=== PATIENT | male | born 1950 | race Caucasian/White ===

== ENCOUNTER → 2018-03-19 | Outpatient (CLI) | payer MEDICARE ==
[~2018-03-19] MED LIST: ASPIRIN325 PO; B-COMPLEX PO; BYSTOLIC 5 MG5 M1 PO; CRESTOR5 MG PO; DESYREL100 MG PO; NITROGLYCERIN0.4 MG SL; NORCO 5-325 TA1 EACH PO; PHENERGAN 25 MG25 M1 PO; PLAVIX 75 MG TA75 MG PO
== END ==
LOC: M.ULTRA 10:29
DX: I86.1 Scrotal varices (principal); N43.3 Hydrocele, unspecified; R19.03 Right lower quadrant abdominal swelling, mass and lump

== ENCOUNTER → 2019-03-28 | Outpatient (CLI) | payer MEDICARE ==
--- NOTE | 2019-03-28 18:57 | CARDNUC ---
[place] [address] CARDIAC NUCLEAR IMAGING REPORT Name: YUNIEL JONES [id number] Admission: 03/28/19 Attend Phys: Pat Carrero, Discharge: Date of : 48 Date of Service: 03/28/19 1857 Report #: [id number] THIS REPORT FOR: //name// APPROVED REPORT Study performed: 03/28/2019 10:49:55 Indication: Pre-Operative CV evaluation Patient Location: Out-Patient Stress Tech: Roula Murphy Stress Nurse: Marci Britt RN Ht: 6 ft 0 in Wt: 238 lbs BSA: 2.29 m2 BMI: 32.27 Medical History Medical History: cad, hyperlipidemia, hypertension Medications: atorvastatin, losartan Allergies: amoxil, codeine, ees Cardiac Risk Factors: age.hyperlipidemia, hypertension, former smoker Previous Cardiac Procedures: pci Exercise History: Physically active Resting Data Rest SPECT myocardial perfusion imaging was performed in supine position 30 minutes following the intravenous injection of 11.4 mCi of Tc-99m Sestamibi. Time of rest injection: 09:00 The images were gated to evaluate regional wall motion and calculate left ventricular ejection fraction. Administration Route: IV Administration Site: Right AC Pharmacologic Stress Pharmacologic stress test was performed by injecting Regadenoson 0.4 mg IV push over 10-15 seconds immediately followed by the intravenous injection of 34.3 mCi of Tc-99m Sestamibi. Time of stress injection: 10:45 Administration Route: IV Administration Site: Right AC Heart Rate at time of stress injection: 84 bpm. Gated Stress SPECT was performed 45 minutes after stress injection. The images were gated to evaluate regional [place] [address] CARDIAC NUCLEAR IMAGING REPORT Name: KARENYUNIELJAMIL LANDA Room: [facility]#: [id number] Admission: 03/28/19 Attend Phys: Pat Carrero, Discharge: Date of : 48 Date of Service: 03/28/19 1857 Report #: [id number] left ventricular ejection fraction. Prone imaging was performed. Stress Test Details Stress Test: Pharmacologic stress testing performed using 0.4 mg of regadenoson per 5 mL given IV over 10 seconds. Reason for pharmacologic stress test: physical limitation. HR Max Heart Rate (APMHR): 151 bpm Resting HR: 67 bpm Target HR (85% APMHR): 128 bpm Max HR Achieved: 85 bpm % of APMHR: 56 Recovery HR: 82 bpm BP Resting BP: 145/80 mmHg Max BP: 127/78 mmHg Recovery BP: 135/81 mmHg ECG Resting ECG: Sinus Rhythm Stress ECG: Sinus Rhythm ST Change: None Arrhythmia: None Recovery ECG: Sinus Rhythm Recovery ST Change: None Recovery Arrhythmia: None Clinical Reason for Termination: Completed protocol Exercise duration: 0 min sec Exercise capacity: 1 METs Patient tolerated Lexiscan infusion without significant cardiac symptoms. Nurse Comments pt has bad knee which he is getting surgery for and is unable to walk on treadmill Stress ECG Conclusion The baseline 12-lead EKG showed no significant ST segment abnormality. EKGs obtained during and post Leatha scan infusion show sinus rhythm with no significant ST segment changes when compared baseline. There were no stress-induced arrhythmias. Study Quality Study: [place] [address] CARDIAC NUCLEAR IMAGING REPORT Name: YUNIEL JONES Room: [facility]#: [id number] Admission: 03/28/19 Attend Phys: RuddyLatrell Cartwright Magan, Discharge: Date of : 48 Date of Service: 03/28/19 1857 Report #: [id number] Artifact: Mild Diaphragmatic artifact Study Data At rest, the left ventricular ejection fraction was 52%.. Post stress, the left ventricular ejection was 59%.. TID = 1.03. Perfusion Perfusion images obtained in the supine position at rest and post Lexiscan stress show photopenia in the inferior wall that resolves with post stress prone imaging suggesting diaphragmatic attenuation artifact. No other significant fixed or reversible defects are identified. Wall Motion Normal left ventricular wall motion. Nuclear Conclusion ECG Findings: negative for ischemia Clinical Findings: negative for ischemia Nuclear Findings: negative for ischemia Exercise Capacity: not assessed Left Ventricular Function: normal Risk Study: low Perfusion images show no defect to suggest infarct or ischemia. Left ventricular systolic function appears normal on gated studies. This is a low risk study. <Conclusion> The baseline 12-lead EKG showed no significant ST segment abnormality. EKGs obtained during and post Leatha scan infusion show sinus rhythm with no significant ST segment changes when compared baseline. There were no stress-induced arrhythmias. <ELECTRONICALLY SIGNED> By: Joshua Monahan MD, FACC 03/28/191856 56 56 Joshua Monahan MD, FACC /INF
== END ==
LOC: M.CT 03-20 10:52 → M.NUC 03-25 14:00 → M.CRD 03-25 15:00 → M.NUC 03-25 16:00 → M.LAB 07:30 → M.CT 08:30 → M.NUC 04-05 08:00
PROVIDERS: Internal Medicine
DX: Z01.818 Encounter for other preprocedural examination (principal); I25.119 Atherosclerotic heart disease of native coronary artery with unspecified angina pectoris; I71.2 Thoracic aortic aneurysm, without rupture; I10 Essential (primary) hypertension; E78.5 Hyperlipidemia, unspecified; Z79.899 Other long term (current) drug therapy; Z87.891 Personal history of nicotine dependence; Z95.5 Presence of coronary angioplasty implant and graft; Z88.1 Allergy status to other antibiotic agents; Z88.5 Allergy status to narcotic agent

== ENCOUNTER → 2019-09-03 | Outpatient (CLI) | payer OTHER ==
--- NOTE | 2019-09-03 17:10 | 2DMMODE ---
[place] [address] 2 D/M-MODE ECHOCARDIOGRAM Name: YUNIEL JONES Room: [facility]#: [id number] Admission: 09/03/19 Attend Phys: Wang Giraldo MD Discharge: Date of : 48 Date of Service: 09/03/19 1709 Report #: [id number] THIS REPORT FOR: cc: Esperanza Levi MD, Katrina MD Liston, Michael J. MD [facility] ~ APPROVED REPORT Study performed: 09/03/2019 14:33:14 EXAM: Comprehensive 2D, Doppler, and color-flow Echocardiogram Patient Location: Out-Patient BSA: 2.31 HR: 78 bpm BP: 130/80 mmHg Other Information Study Quality: Fair Indications CAD 2D Dimensions IVSd: 12.73 (7-11mm) LVOT Diam: 21.05 (18-24mm) LVDd: 34.29 mm PWd: 10.65 (7-11mm) Ascending Ao: 40.69 (22-36mm) LVDs: 23.76 (25-40mm) Aortic Root: 22.68 mm Volumes Left Atrial Volume (Systole) LA ESV Index: 16.70 mL/m2 Aortic Valve AoV Peak Lui.: 1.16 m/s AO Peak Gr.: 5.39 mmHg LVOT Max P.83 mmHg AO Mean Gr.: 2.88 mmHg LVOT Mean P.39 mmHg LVOT Max V: 1.10 m/s AO V2 VTI: 25.94 cm LVOT Mean V: 0.72 m/s DEVENDRA (VTI): 3.19 cm2 LVOT V1 VTI: 23.75 cm Mitral Valve E/A Ratio: 1.04 [place] [address] 2 D/M-MODE ECHOCARDIOGRAM Name: YUNIEL JONES Room: [facility]#: [id number] Admission: 09/03/19 Attend Phys: Wang Giraldo MD Discharge: Date of : 48 Date of Service: 09/03/19 1709 Report #: [id number] MV Decel. Time: 225.84 ms MV E Max Lui.: 0.72 m/s MV PHT: 65.49 ms MVA (PHT): 3.36 cm2 TDI E/Lateral E': 7.20 E/Medial E': 8.00 Medial E' Lui.: 0.09 m/s Lateral E' Lui.: 0.10 m/s Pulmonary Valve PV Peak Lui.: 0.71 m/s PV Peak Gr.: 2.03 mmHg Left Ventricle The left ventricle is normal size. There is normal LV segmental wall motion. There is normal left ventricular wall thickness. Left ventricular systolic function is normal. LVEF is 55-60%. Left ventricular filling pattern is normal for age. Right Ventricle The right ventricle is normal size. The right ventricular systolic function is normal. Atria The left atrium size is normal. The right atrium size is normal. Aortic Valve Mild aortic valve sclerosis. Mild aortic regurgitation. There is no aortic valvular stenosis. Mitral Valve The mitral valve is normal in structure. There is no mitral valve regurgitation noted. No evidence of mitral valve stenosis. Tricuspid Valve The tricuspid valve is normal in structure. There is no tricuspid valve regurgitation noted. Pulmonic Valve The pulmonary valve is normal in structure. There is no pulmonic valvular regurgitation. Great Vessels The aortic root is normal in size. The ascending aorta is mildly dilated. (4.o cm) IVC is normal in size and collapses >50% [place] [address] 2 D/M-MODE ECHOCARDIOGRAM Name: YUNIEL JONES Room: [facility]#: [id number] Admission: 09/03/19 Attend Phys: Wang Giraldo MD Discharge: Date of : 48 Date of Service: 09/03/19 1709 Report #: [id number] inspiration. Pericardium There is no pericardial effusion. <Conclusion> The left ventricle is normal size. There is normal left ventricular wall thickness. Left ventricular systolic function is normal. LVEF is 55-60%. Left ventricular filling pattern is normal for age. Mild aortic valve sclerosis. Mild aortic regurgitation. The ascending aorta is mildly dilated. (4.o cm) IVC is normal in size and collapses >50% with inspiration. <ELECTRONICALLY SIGNED> By: Joshua Monahan MD, FACC 09/03/191708 08 08 Joshua Monahan MD, FACC /INF
== END ==
LOC: M.CRD 08-16 12:39
PROVIDERS: ATTEND Orthopaedic Surgery
DX: M81.8 Other osteoporosis without current pathological fracture (principal); M89.741 Major osseous defect, right hand; M85.862 Other specified disorders of bone density and structure, left lower leg; M85.861 Other specified disorders of bone density and structure, right lower leg

== ENCOUNTER 2020-02-18 13:23 | Observation (INO) | payer MEDICARE ==
[~2020-02-18] VITALS: Ht 188 cm; Wt 101.2 kg
[2020-02-18 13:34] VITALS: BP 127/68
[2020-02-18] MEDS ORDERED: METOPROLOL SUCC25 M1 PO (13:37)
[2020-02-18] MEDS ORDERED: COZAAR 25 MG TA25 M2 PO (13:38)
[2020-02-18] MEDS ORDERED: XANAX1 MG PO (13:38)
[2020-02-18] MEDS ORDERED: PROTONIX40 M2 PO (13:39)
[2020-02-18] MEDS ORDERED: LIPITOR 20 MG T20 M1 PO (13:39)
[2020-02-18 14:02] LABS: ABSOLUTE EOSINOPHILS 0.1 thou/uL (0.0-0.7); ABSOLUTE LYMPHOCYTES 1.8 thou/uL (0.8-5.3); ABSOLUTE MONOCYTES 0.5 thou/uL (0.0-1.2); ABSOLUTE NEUTROPHILS 4.6 thou/uL (1.6-8.1); BASOPHILS 0.2 %; EOSINOPHILS 1.4 %; HEMATOCRIT 42.4 % (42.0-52.0); HEMOGLOBIN 14.3 gm/dL (14.0-18.0); LYMPHOCYTES 26.1 %; MCH 36.6 pg (26.0-34.0); MCHC 33.8 g/dL (28.0-37.0); MCV 108.4 fL (80.0-100.0); MONOCYTES 6.6 %; NUCLEATED RBCS 0 /100WBC; PLATELET COUNT* 175 thou/uL (150-400); POLYS 65.7 %; RBC 3.91 mil/uL (4.50-6.00); RDW-CV 12.5 % (10.5-14.5)
[2020-02-18 14:08] LABS: CALCIUM 8.8 mg/dL (8.5-10.1); POTASSIUM 4.7 mmol/L (3.5-5.1)
[2020-02-18 14:10] LABS: APTT 24.8 Seconds (25.0-31.3); INR 1.1; PROTIME 11.7 Seconds (9.20-11.50)
[2020-02-18 14:22] LABS: MAGNESIUM 1.9 mg/dL (1.8-2.4); TOTAL BILIRUBIN 0.8 mg/dL (<0.1-1.0); TOTAL PROTEIN 7.8 g/dL (6.4-8.2)
--- NOTE | 2020-02-18 16:14 | EKG ---
[place] [address] ELECTROCARDIOGRAM REPORT Name: KARENYUNIELJAMIL LANDA Room: [address] M.R.#: [id number] Admission: 02/18/20 Attend Phys: Gadiel Frankel, Discharge: Date of : 48 Date of Service: 02/18/20 1329 Report #: [id number] THIS REPORT FOR: //name// [facility] ED Test Date: 2020-02-18 Test Time: 13:29:12 Pat Name: YUNIEL JONES Department: Room: [facility] Gender: M Scada Technician: ROSALES : 1950 Requested By: Xavi Abarca Order Number: [id number] MD: Jesus Delgadillo Measurements Intervals [place] Rate: 61 P: 64 DC: 183 QRS: 55 QRSD: 82 T: 60 QT: 394 QTc: 397 Interpretive Statements Sinus arrhythmia Ventricular premature complex Baseline wander in lead(s) V1 Compared to ECG 11/13/2012 09:04:52 Ventricular premature complex(es) now present Electronically Signed On 02-18-2020 16:14:12 CASE BRIEFER by Jesus Delgadillo [email or web address] <ELECTRONICALLY SIGNED> By: Jesus Delgadillo MD, FAC 02/18/20 1614 1329 1329 Jesus Delgadillo MD, [facility] /EPI
[2020-02-18 16:45] VITALS: BP 125/66
[2020-02-18 17:00] VITALS: BP 141/73
[2020-02-18] MEDS ORDERED: NEOMYCIN-POLY-7.5 ML OPHTHALMIC (17:12)
[2020-02-18 19:30] VITALS: BP 141/65
[2020-02-19] VITALS: BP 122/68
[2020-02-19 04:00] VITALS: BP 104/80
[2020-02-19 04:52] LABS: BUN 15 mg/dL (7-18); CHLORIDE 104 mmol/L (98-107); HDL CHOLESTEROL 37 mg/dL (>40); MAGNESIUM 2.3 mg/dL (1.8-2.4); SODIUM 140 mmol/L (136-145)
[2020-02-19 04:59] LABS: ANION GAP 5 mmol/L (7-16); CALCIUM 9.4 mg/dL (8.5-10.1); CHOLESTEROL 123 mg/dL (<200); CO2 31 mmol/L (21-32); GLUCOSE 89 mg/dL (70-99); LDL CHOLESTEROL 67 mg/dL (<100); POTASSIUM 4.7 mmol/L (3.5-5.1); TC:HDL 3.3 Ratio (Not establshd); TRIGLYCERIDE 98 mg/dL (<150); VLDL 20 mg/dL (<40)
[2020-02-19 05:33] LABS: SERUM ASSESSMENT Clear
[2020-02-19 08:00] VITALS: BP 143/81
[2020-02-19] MEDS ORDERED: NITROGLYCERIN0.4 MG SL (08:42)
[2020-02-19 12:42] VITALS: BP 166/84
--- NOTE | 2020-02-19 16:26 | CARDNUC ---
[place] [address] CARDIAC NUCLEAR IMAGING REPORT Name: YUNIEL JONES Room: [address] M.R.#: [id number] Admission: 02/18/20 Attend Phys: Gadiel Frankel, Discharge: Date of : 48 Date of Service: 02/19/20 1626 Report #: [id number] THIS REPORT FOR: cc: Esperanza Levi MD, Katrina MD Liston, Michael J. MD [facility] ~ APPROVED REPORT Imaging Protocol: Rest Tc-99m/Stress Tc-99m 1 day Study performed: 02/19/2020 07:31:00 Indication: Chest pain Patient Location: In-Patient Room #: 6 Stress Tech: Carla Green Stress Nurse: Marci Britt RN NM Tech:CAESAR Pierre Ht: 6 ft 2 in Wt: 222 lbs BSA: 2.27 m2 BMI: 28.50 Medical History Medical History: CAD s/p stent, HTN, Hyperlipidemia aortic aneurism Medications: atorvastatin, asa-325, losartan, ntg, toprolol xl Allergies: ees codeine Cardiac Risk Factors: Age, HTN, Hyperlipidemia Previous Cardiac Procedures: PCI Exercise History: Sedentary Resting Data Rest SPECT myocardial perfusion imaging was performed in supine position 30 minutes following the intravenous injection of 10.6 mCi of Tc-99m Sestamibi. Time of rest injection: 1155 Date: 02/19/2020 The images were gated to evaluate regional wall motion and calculate left ventricular ejection fraction. Administration Route: IV Pharmacologic Stress Pharmacologic stress test was performed by injecting Regadenoson 0.4 mg IV push over 10-15 seconds immediately followed by the intravenous injection of 36.0 mCi of Tc-99[place] [address] CARDIAC NUCLEAR IMAGING REPORT Name: YUNIEL JONES Room: [address] M.R.#: [id number] Admission: 02/18/20 Attend Phys: Gadiel Frankel, Discharge: Date of : 48 Date of Service: 02/19/20 1626 Report #: [id number] Time of stress injection: 1320 Date: 02/19/2020 Administration Route: IV Gated Stress SPECT was performed 40 minutes after stress injection. The images were gated to evaluate regional wall motion and calculate left ventricular ejection fraction. Prone imaging was performed. Stress Test Details Stress Test: Pharmacologic stress testing performed using 0.4 mg of regadenoson per 5 mL given IV over 10 seconds. Reason for pharmacologic stress test: physical limitation. HR Max Heart Rate (APMHR): 150 bpm Resting HR: 52 bpm Target HR (85% APMHR): 127 bpm Max HR Achieved: 78 bpm % of APMHR: 52 Recovery HR: 71 bpm BP Resting BP: 153/83 mmHg Max BP: 187/94 mmHg Recovery BP: 148/101 mmHg ECG Resting ECG: Sinus Rhythm Stress ECG: Sinus Rhythm ST Change: None Arrhythmia: None Recovery ECG: Sinus Rhythm Recovery ST Change: None Recovery Arrhythmia: None Clinical Reason for Termination: Completed protocol The patient tolerated Lexiscan infusion without significant cardiac symptoms. Stress ECG Conclusion The baseline twelve-lead EKG shows sinus rhythm without significant ST segment or T wave abnormality. EKGs obtained during and post Lexiscan infusion show sinus rhythm with no significant ST segment or T wave changes when compared to baseline. There were no stress-induced arrhythmias. Study Quality Study: [place] [address] CARDIAC NUCLEAR IMAGING REPORT Name: YUNIEL JONES Room: [address] Ernie#: [id number] Admission: 02/18/20 Attend Phys: Gadiel Frankel, Discharge: Date of : 48 Date of Service: 02/19/20 1626 Report #: [id number] Artifact: Mild Diaphragmatic artifact Study Data At rest, the left ventricular ejection fraction was 51%.. Post stress, the left ventricular ejection was 52%.. TID = 1.02. Perfusion Perfusion images show a moderate sized moderate intensity defect involving the basal to mid inferior wall that resolves on post-rest prone imaging suggesting diaphragmatic attenuation artifact. No other significant fixed or reversible defects were identified. Wall Motion Normal left ventricular wall motion. Nuclear Conclusion ECG Findings: negative for ischemia Clinical Findings: negative for ischemia Nuclear Findings: negative for ischemia Exercise Capacity: not assessed Left Ventricular Function: normal Risk Study: low Perfusion study show no defect to suggest infarct or ischemia. Left ventricular systolic function appears normal on gated studies. This is a low risk study. <Conclusion> The baseline twelve-lead EKG shows sinus rhythm without significant ST segment or T wave abnormality. EKGs obtained during and post Lexiscan infusion show sinus rhythm with no significant ST segment or T wave changes when compared to baseline. There were no stress-induced arrhythmias. <ELECTRONICALLY SIGNED> By: Joshua Monahan MD, FACC 02/19/20 1626 1626 1626 Joshua Monahan MD, FACC /INF
[2020-02-19 17:29] VITALS: BP 166/84
== END 2020-02-19 18:00 | disposition home or self-care (01) ==
LOC: M.ERS 13:23 → M.TBA-ER 14:53 → M.2W 16:48
PROVIDERS: Family Medicine; ADMIT Internal Medicine; ATTEND Internal Medicine
DX: I25.110 Atherosclerotic heart disease of native coronary artery with unstable angina pectoris (principal); I10 Essential (primary) hypertension; F41.1 Generalized anxiety disorder; I71.2 Thoracic aortic aneurysm, without rupture; Z79.82 Long term (current) use of aspirin; Z79.899 Other long term (current) drug therapy; Z20.828 Contact with and (suspected) exposure to other viral communicable diseases

== ENCOUNTER → 2020-08-25 | Outpatient (CLI) | payer MEDICARE ==
[~2020-08-25] MED LIST changes: +COZAAR 25 MG TA25 M2 PO; +LIPITOR 20 MG T20 M1 PO; +METOPROLOL SUCC25 M1 PO; +NEOMYCIN-POLY-7.5 ML OPHTHALMIC; +PROTONIX40 M2 PO; +XANAX1 MG PO
[2020-08-25 15:28] LABS: CREATININE 0.9 mg/dL (0.6-1.3)
== END ==
LOC: M.LAB 14:00 → M.CT 15:00
PROVIDERS: ATTEND Internal Medicine
DX: I71.2 Thoracic aortic aneurysm, without rupture (principal); I51.7 Cardiomegaly; I25.10 Atherosclerotic heart disease of native coronary artery without angina pectoris; K57.30 Diverticulosis of large intestine without perforation or abscess without bleeding; M43.8X6 Other specified deforming dorsopathies, lumbar region; J98.4 Other disorders of lung

== ENCOUNTER → 2020-08-27 | Outpatient (CLI) | payer MEDICARE | LOC: M.CT 08:46 | PROVIDERS: ATTEND Internal Medicine | DX: I71.2 Thoracic aortic aneurysm, without rupture (principal); I26.99 Other pulmonary embolism without acute cor pulmonale; J98.4 Other disorders of lung ==